=== PATIENT | female | born 1945 | race Caucasian/White ===

== ENCOUNTER 2018-05-31 16:23 | Inpatient (IN) | payer MEDICARE, OTHER, MEDICAID ==
[2018-05-31 22:43] LABS: ADD MAN DIFF? NO
[2018-05-31 22:47] LABS: WHITE BLOOD COUNT 5.7 10^3/ul (4.8-10.8)
[2018-05-31 22:47] LABS: BASOPHILS % 0.2 % (0.0-2.0); EOSINOPHILS % 0.3 % (0.0-7.0); HEMATOCRIT 31.9 % (37.0-47.0); HEMOGLOBIN 9.9 g/dl (12.0-16.0); LYMPHOCYTES # 0.8 10^3/ul (0.8-2.9); LYMPHOCYTES % 13.8 % (15.0-51.0); MEAN CORPUSCULAR HEMOGLOBIN 32.1 pg (29.0-33.0); MEAN CORPUSCULAR VOLUME 103.6 fl (82.0-101.0); MEAN PLATELET VOLUME 9.4 fl (7.4-10.4); MONOCYTE # 0.6 10^3/ul (0.3-0.9); NEUTROPHIL # 4.3 10^3/ul (1.6-7.5); NEUTROPHILS % 74.5 % (39.0-77.0); PLATELET COUNT 126 10^3/UL (140-415); RED BLOOD COUNT 3.08 10^6/ul (4.20-5.40); RED CELL DISTRIBUTION WIDTH 14.1 % (11.5-14.5)
[2018-05-31 23:06] LABS: ALANINE AMINOTRANSFERASE 16 IU/L (13-69); ALBUMIN 3.8 g/dl (3.3-4.9); ALBUMIN/GLOBULIN RATIO 0.97; ALKALINE PHOSPHATASE 125 IU/L (42-121); ANION GAP 14 (5-13); ASPARTATE AMINO TRANSFERASE 16 IU/L (15-46); BILIRUBIN,INDIRECT 0.3 mg/dl (0-1.1); BILIRUBIN,TOTAL 0.3 mg/dl (0.2-1.3); BLOOD UREA NITROGEN 50 mg/dl (7-20); CALCIUM 9.4 mg/dl (8.4-10.2); CARBON DIOXIDE 25 mmol/L (21-31); CHLORIDE 100 mmol/L (97-110); CREATININE 4.75 mg/dl (0.44-1.00); GLUCOSE 186 mg/dl (70-220); POTASSIUM 4.1 mmol/L (3.5-5.1); SODIUM 139 mmol/L (135-144); TOTAL PROTEIN 7.7 g/dl (6.1-8.1)
[2018-05-31 23:15] LABS: INR 1.15; PROTIME 14.9 Sec (11.9-14.9); PT RATIO 1.2
[2018-05-31 23:16] LABS: PARTIAL THROMBOPLASTIN TIME 38.8 Sec (23.0-35.0)
[2018-05-31 23:18] LABS: TROPONIN-I 0.014 ng/ml (0.000-0.120)
[2018-06-01] MEDS ORDERED: ONDANSETRON 4 MG INJ IV
[2018-06-01] MEDS: PIPER-TAZO 3.375 GM IV (PMX) 100 ML IVPB (00:37)
[2018-06-01] MEDS ORDERED: HEPARIN 5,000 UNIT/0.5 ML VIAL ×2 (10:54→23:54)
[2018-06-01] MEDS ORDERED: ACETAMINOPHEN 325 MG TAB PO ×2 (11:00)
[2018-06-01] MEDS ORDERED: DOCUSATE SODIUM 100 MG CAP PO (11:00)
[2018-06-01] MEDS ORDERED: HYDROCODONE/APAP (5/325) TAB PO (11:00)
[2018-06-01] MEDS ORDERED: BISACODYL (EC) 5 MG TAB PO (11:00)
[2018-06-01] MEDS ORDERED: morphine 2 MG INJ IV (11:00)
[2018-06-01] MEDS ORDERED: NACL 0.9% 3 ML SYG IV (11:00)
[2018-06-01] MEDS: FAMOTIDINE 20 MG TAB PO (11:00)
[2018-06-01] MEDS: ATENOLOL 50 MG TAB PO ×2 (11:01→23:55)
[2018-06-01] MEDS: HEPARIN 5,000 UNIT/1 ML VIAL SC ×2 (11:04→23:58)
[2018-06-01] MEDS ORDERED: GLUCOSE GEL 15 GRAM TUBE BUCCAL (11:30)
[2018-06-01] MEDS ORDERED: DEXTROSE 50% 50 ML SYRINGE IV ×2 (11:30)
[2018-06-01] MEDS ORDERED: GLUCAGON 1 MG INJ IM (11:30)
[2018-06-01] MEDS ORDERED: GLUCOSE GEL 15 GRAM TUBE PO (11:30)
[2018-06-01] MEDS: INSULIN ASPART [NOVOLOG] 3 ML PEN SC ×5 (13:21→23:45)
[2018-06-01 16:36] LABS: HEPATITIS B SURFACE ANTIGEN NEGATIVE (NEGATIVE)
[2018-06-01 16:54] LABS: HEPATITIS B SURFACE ANTIBODY POSITIVE (NEGATIVE)
[2018-06-02] MEDS: ACCU-CHEK XX (01:41)
[2018-06-02] MEDS ORDERED: HEPARIN 5,000 UNIT/0.5 ML VIAL ×2 (07:43→19:48)
[2018-06-02 08:56] LABS: ADD MAN DIFF? NO
[2018-06-02] MEDS: INSULIN ASPART [NOVOLOG] 3 ML PEN SC ×7 (09:01→21:00)
[2018-06-02] MEDS: HEPARIN 5,000 UNIT/1 ML VIAL SC ×2 (09:02→20:36)
[2018-06-02 09:03] LABS: WHITE BLOOD COUNT 3.9 10^3/ul (4.8-10.8)
[2018-06-02 09:03] LABS: BASOPHILS % 0.3 % (0.0-2.0); EOSINOPHILS # 0.1 10^3/ul (0.0-0.5); EOSINOPHILS % 2.3 % (0.0-7.0); HEMATOCRIT 30.3 % (37.0-47.0); HEMOGLOBIN 9.2 g/dl (12.0-16.0); LYMPHOCYTES # 0.7 10^3/ul (0.8-2.9); LYMPHOCYTES % 18.1 % (15.0-51.0); MEAN CORPUSCULAR HEMOGLOBIN 31.9 pg (29.0-33.0); MEAN CORPUSCULAR HGB CONC 30.4 g/dl (32.0-37.0); MEAN CORPUSCULAR VOLUME 105.2 fl (82.0-101.0); MEAN PLATELET VOLUME 10.1 fl (7.4-10.4); MONOCYTE # 0.4 10^3/ul (0.3-0.9); MONOCYTES % 10.3 % (0.0-11.0); NEUTROPHIL # 2.7 10^3/ul (1.6-7.5); NEUTROPHILS % 68.7 % (39.0-77.0); PLATELET COUNT 129 10^3/UL (140-415); RED BLOOD COUNT 2.88 10^6/ul (4.20-5.40); RED CELL DISTRIBUTION WIDTH 14.2 % (11.5-14.5)
[2018-06-02] MEDS: FAMOTIDINE 20 MG TAB PO (09:03)
[2018-06-02] MEDS: ATENOLOL 50 MG TAB PO (09:03)
[2018-06-02 09:15] LABS: POSITIVE DIFF @See below
[2018-06-02 09:23] LABS: ALANINE AMINOTRANSFERASE 17 IU/L (13-69); ALBUMIN 3.3 g/dl (3.3-4.9); ALBUMIN/GLOBULIN RATIO 0.97; ALKALINE PHOSPHATASE 115 IU/L (42-121); ANION GAP 12 (5-13); ASPARTATE AMINO TRANSFERASE 20 IU/L (15-46); BILIRUBIN,INDIRECT 0.2 mg/dl (0-1.1); BILIRUBIN,TOTAL 0.2 mg/dl (0.2-1.3); BLOOD UREA NITROGEN 25 mg/dl (7-20); CALCIUM 8.7 mg/dl (8.4-10.2); CARBON DIOXIDE 27 mmol/L (21-31); CHLORIDE 100 mmol/L (97-110); CREATININE 2.99 mg/dl (0.44-1.00); GLUCOSE 154 mg/dl (70-220); POTASSIUM 4.3 mmol/L (3.5-5.1); SODIUM 139 mmol/L (135-144); TOTAL PROTEIN 6.7 g/dl (6.1-8.1)
[2018-06-02 09:41] LABS: HEMOGLOBIN A1C 6.5 % (0-5.9)
[2018-06-02] MEDS ORDERED: VANCOMYCIN IV PER PHARMACY XX (12:00)
[2018-06-02] MEDS: NIFEdipine (XL) 30 MG TAB PO (13:03)
[2018-06-02] MEDS: PIPER-TAZO 2.25 GM (PMX) 50 ML IVPB (13:12)
[2018-06-02] MEDS: VANCOMYCIN 1.25 GM in SOD CHLORIDE 0.9% 250 ML IVPB (14:02)
[2018-06-02] MEDS: CEFEPIME 1GM/50 ML (PMX) 50 ML IVPB (17:06)
[2018-06-02] MEDS: MONTELUKAST 10 MG TAB PO (20:32)
[2018-06-02] MEDS: EPOETIN 4000 UNITS/1 ML INJ (ESRD) SC (20:34)
[2018-06-02] MEDS: INSULIN GLARGINE [LANTus] (100 UNITS/ML) SYG SC (22:01)
[2018-06-02] MEDS: metroNIDAZOLE 500 MG/NS (PMX) 100 ML IVPB (22:02)
[2018-06-03] MEDS: ACCU-CHEK XX (01:25)
[2018-06-03] MEDS: metroNIDAZOLE 500 MG/NS (PMX) 100 ML IVPB ×3 (05:37→21:04)
[2018-06-03 06:12] LABS: ADD MAN DIFF? NO
[2018-06-03 06:21] LABS: BASOPHILS % 0.2 % (0.0-2.0); EOSINOPHILS # 0.1 10^3/ul (0.0-0.5); EOSINOPHILS % 1.4 % (0.0-7.0); HEMATOCRIT 27.4 % (37.0-47.0); HEMOGLOBIN 8.3 g/dl (12.0-16.0); LYMPHOCYTES # 0.8 10^3/ul (0.8-2.9); LYMPHOCYTES % 19.5 % (15.0-51.0); MEAN CORPUSCULAR HEMOGLOBIN 31.6 pg (29.0-33.0); MEAN CORPUSCULAR HGB CONC 30.3 g/dl (32.0-37.0); MEAN CORPUSCULAR VOLUME 104.2 fl (82.0-101.0); MEAN PLATELET VOLUME 10.1 fl (7.4-10.4); MONOCYTE # 0.4 10^3/ul (0.3-0.9); NEUTROPHIL # 2.9 10^3/ul (1.6-7.5); NEUTROPHILS % 69.7 % (39.0-77.0); PLATELET COUNT 120 10^3/UL (140-415); RED BLOOD COUNT 2.63 10^6/ul (4.20-5.40)
[2018-06-03 06:21] LABS: WHITE BLOOD COUNT 4.2 10^3/ul (4.8-10.8)
[2018-06-03] MEDS: DIPHENOXYLATE/ATROPINE TAB PO ×2 (06:35→17:37)
[2018-06-03 06:56] LABS: ANION GAP 10 (5-13); BLOOD UREA NITROGEN 42 mg/dl (7-20); CALCIUM 8.4 mg/dl (8.4-10.2); CARBON DIOXIDE 25 mmol/L (21-31); CHLORIDE 104 mmol/L (97-110); CREATININE 4.49 mg/dl (0.44-1.00); GLUCOSE 193 mg/dl (70-220); POTASSIUM 4.8 mmol/L (3.5-5.1); SODIUM 139 mmol/L (135-144)
[2018-06-03] MEDS: INSULIN ASPART [NOVOLOG] 3 ML PEN SC ×7 (07:36→21:00)
[2018-06-03] MEDS ORDERED: HEPARIN 5,000 UNIT/0.5 ML VIAL ×2 (08:42→19:46)
[2018-06-03] MEDS: FAMOTIDINE 20 MG TAB PO (08:44)
[2018-06-03] MEDS: NIFEdipine (XL) 30 MG TAB PO (08:45)
[2018-06-03] MEDS: ATENOLOL 25 MG TAB PO (08:45)
[2018-06-03] MEDS: HEPARIN 5,000 UNIT/1 ML VIAL SC ×2 (08:56→21:03)
[2018-06-03] MEDS: SIMETH/SOD BICARB/CIT AC PKT (E-Z- GAS II) PO (10:11)
[2018-06-03] MEDS: BARIUM SULFATE 135 ML (E-Z HD) PO (10:11)
[2018-06-03] MEDS: CEFEPIME 1GM/50 ML (PMX) 50 ML IVPB (15:46)
[2018-06-03] MEDS: INSULIN GLARGINE [LANTus] (100 UNITS/ML) SYG SC (20:00)
[2018-06-03] MEDS: MONTELUKAST 10 MG TAB PO (21:04)
[2018-06-04] MEDS: ACCU-CHEK XX (01:06)
[2018-06-04] MEDS: metroNIDAZOLE 500 MG/NS (PMX) 100 ML IVPB ×3 (05:10→22:44)
[2018-06-04 06:41] LABS: VANCOMYCIN,RANDOM 9.5 ug/ml
[2018-06-04] MEDS: INSULIN ASPART [NOVOLOG] 3 ML PEN SC ×7 (07:55→21:00)
[2018-06-04] MEDS: NIFEdipine (XL) 30 MG TAB PO (08:41)
[2018-06-04] MEDS: ATENOLOL 25 MG TAB PO (08:41)
[2018-06-04] MEDS: FAMOTIDINE 20 MG TAB PO (08:55)
[2018-06-04] MEDS: HEPARIN 5,000 UNIT/1 ML VIAL SC ×2 (09:00→21:42)
[2018-06-04] MEDS: DIPHENOXYLATE/ATROPINE TAB PO ×2 (09:05→22:57)
[2018-06-04] MEDS ORDERED: HEPARIN 5,000 UNIT/0.5 ML VIAL ×2 (11:06→21:17)
[2018-06-04] MEDS: CEFEPIME 1GM/50 ML (PMX) 50 ML IVPB (19:48)
[2018-06-04] MEDS: VANCOMYCIN 1 GM 250 ML IVPB (21:25)
[2018-06-04] MEDS: MONTELUKAST 10 MG TAB PO (21:26)
[2018-06-04] MEDS: INSULIN GLARGINE [LANTus] (100 UNITS/ML) SYG SC (21:40)
[2018-06-04] MEDS: ONDANSETRON 4 MG INJ IV (22:57)
[2018-06-05] MEDS: ACCU-CHEK XX (02:00)
[2018-06-05] MEDS: metroNIDAZOLE 500 MG/NS (PMX) 100 ML IVPB ×2 (06:09→13:55)
[2018-06-05] MEDS: INSULIN ASPART [NOVOLOG] 3 ML PEN SC ×6 (07:34→20:24)
[2018-06-05] MEDS ORDERED: HEPARIN 5,000 UNIT/0.5 ML VIAL ×2 (09:00→20:08)
[2018-06-05] MEDS: HEPARIN 5,000 UNIT/1 ML VIAL SC ×2 (09:11→20:29)
[2018-06-05] MEDS: NIFEdipine (XL) 30 MG TAB PO ×2 (09:43→20:22)
[2018-06-05] MEDS: FAMOTIDINE 20 MG TAB PO (09:43)
[2018-06-05] MEDS: ATENOLOL 25 MG TAB PO (09:43)
[2018-06-05] MEDS: DIPHENOXYLATE/ATROPINE TAB PO (09:47)
[2018-06-05 09:48] LABS: ADD MAN DIFF? NO
[2018-06-05 09:54] LABS: WHITE BLOOD COUNT 4.2 10^3/ul (4.8-10.8)
[2018-06-05 09:54] LABS: BASOPHILS % 0.2 % (0.0-2.0); EOSINOPHILS # 0.1 10^3/ul (0.0-0.5); EOSINOPHILS % 2.1 % (0.0-7.0); HEMATOCRIT 30.4 % (37.0-47.0); HEMOGLOBIN 9.3 g/dl (12.0-16.0); LYMPHOCYTES # 0.6 10^3/ul (0.8-2.9); LYMPHOCYTES % 14.2 % (15.0-51.0); MEAN CORPUSCULAR HEMOGLOBIN 31.7 pg (29.0-33.0); MEAN CORPUSCULAR HGB CONC 30.6 g/dl (32.0-37.0); MEAN CORPUSCULAR VOLUME 103.8 fl (82.0-101.0); MEAN PLATELET VOLUME 9.6 fl (7.4-10.4); MONOCYTE # 0.5 10^3/ul (0.3-0.9); MONOCYTES % 11.4 % (0.0-11.0); NEUTROPHILS % 71.9 % (39.0-77.0); PLATELET COUNT 103 10^3/UL (140-415); RED BLOOD COUNT 2.93 10^6/ul (4.20-5.40); RED CELL DISTRIBUTION WIDTH 13.8 % (11.5-14.5)
[2018-06-05 10:22] LABS: ANION GAP 12 (5-13); BLOOD UREA NITROGEN 26 mg/dl (7-20); CALCIUM 8.5 mg/dl (8.4-10.2); CARBON DIOXIDE 26 mmol/L (21-31); CHLORIDE 101 mmol/L (97-110); CREATININE 3.78 mg/dl (0.44-1.00); GLUCOSE 95 mg/dl (70-220); POTASSIUM 4.6 mmol/L (3.5-5.1); SODIUM 139 mmol/L (135-144)
[2018-06-05] MEDS: PANTOPRAZOLE 40 MG INJ IV (12:30)
[2018-06-05] MEDS ORDERED: GENTAMICIN IV PER PHARMACY XX (15:00)
[2018-06-05] MEDS: GLUCOSE GEL 15 GRAM TUBE PO (15:06)
[2018-06-05] MEDS: GENTAMICIN 120 MG/NS (PMX) 100 ML IVPB (16:30)
[2018-06-05] MEDS: LEVOFLOXACIN 250 MG TAB PO (16:31)
[2018-06-05] MEDS ORDERED: morphine LIQ (10 MG/5 ML) CUP PO (17:30)
[2018-06-05] MEDS: MONTELUKAST 10 MG TAB PO (20:23)
[2018-06-05] MEDS: RIFAXIMIN 200 MG TAB PO (20:23)
[2018-06-05] MEDS: L ACIDOPHIL/B LACTIS/B LONGUM CAPSULE PO (20:23)
[2018-06-05] MEDS: INSULIN GLARGINE [LANTus] (100 UNITS/ML) SYG SC (20:29)
[2018-06-05] MEDS: LORAZEPAM 2 MG INJ IV (23:34)
[2018-06-06] MEDS: ACCU-CHEK XX (02:00)
[2018-06-06] MEDS: PANTOPRAZOLE (EC) 40 MG TAB PO (05:27)
[2018-06-06] MEDS: INSULIN ASPART [NOVOLOG] 3 ML PEN SC ×4 (08:24→21:00)
[2018-06-06] MEDS: ATENOLOL 25 MG TAB PO (09:00)
[2018-06-06] MEDS: NIFEdipine (XL) 30 MG TAB PO ×2 (09:00→21:29)
[2018-06-06] MEDS ORDERED: HEPARIN 5,000 UNIT/0.5 ML VIAL ×2 (09:08→20:36)
[2018-06-06] MEDS: RIFAXIMIN 200 MG TAB PO ×3 (09:28→21:27)
[2018-06-06] MEDS: HEPARIN 5,000 UNIT/1 ML VIAL SC ×2 (09:32→21:36)
[2018-06-06] MEDS: L ACIDOPHIL/B LACTIS/B LONGUM CAPSULE PO ×3 (12:43→21:29)
[2018-06-06] MEDS: DIPHENOXYLATE/ATROPINE TAB PO (12:44)
[2018-06-06] MEDS ORDERED: [UNRECOGNIZED DRUG - REMARK] XX (20:00)
[2018-06-06] MEDS: INSULIN GLARGINE [LANTus] (100 UNITS/ML) SYG SC (21:35)
[2018-06-06] MEDS: GENTAMICIN 60 MG in SOD CHLORIDE 0.9% 50 ML IVPB (22:04)
[2018-06-06] MEDS: MONTELUKAST 10 MG TAB PO (22:56)
[2018-06-07] MEDS: ACCU-CHEK XX (02:00)
[2018-06-07 05:21] LABS: ADD MAN DIFF? NO
[2018-06-07 05:26] LABS: BASOPHILS % 0.2 % (0.0-2.0); EOSINOPHILS # 0.1 10^3/ul (0.0-0.5); EOSINOPHILS % 1.7 % (0.0-7.0); HEMATOCRIT 31.9 % (37.0-47.0); HEMOGLOBIN 9.6 g/dl (12.0-16.0); LYMPHOCYTES # 0.8 10^3/ul (0.8-2.9); LYMPHOCYTES % 14.5 % (15.0-51.0); MEAN CORPUSCULAR HEMOGLOBIN 31.3 pg (29.0-33.0); MEAN CORPUSCULAR HGB CONC 30.1 g/dl (32.0-37.0); MEAN CORPUSCULAR VOLUME 103.9 fl (82.0-101.0); MEAN PLATELET VOLUME 10.1 fl (7.4-10.4); MONOCYTE # 0.5 10^3/ul (0.3-0.9); MONOCYTES % 9.4 % (0.0-11.0); NEUTROPHIL # 3.9 10^3/ul (1.6-7.5); NEUTROPHILS % 73.6 % (39.0-77.0); PLATELET COUNT 115 10^3/UL (140-415); RED BLOOD COUNT 3.07 10^6/ul (4.20-5.40); RED CELL DISTRIBUTION WIDTH 13.7 % (11.5-14.5)
[2018-06-07 05:26] LABS: WHITE BLOOD COUNT 5.2 10^3/ul (4.8-10.8)
[2018-06-07 05:46] LABS: ANION GAP 8 (5-13); BLOOD UREA NITROGEN 14 mg/dl (7-20); CALCIUM 8.5 mg/dl (8.4-10.2); CARBON DIOXIDE 29 mmol/L (21-31); CHLORIDE 101 mmol/L (97-110); CREATININE 2.89 mg/dl (0.44-1.00); GLUCOSE 152 mg/dl (70-220); POTASSIUM 4.4 mmol/L (3.5-5.1); SODIUM 138 mmol/L (135-144)
[2018-06-07 06:00] LABS: VANCOMYCIN,RANDOM 13.1 ug/ml
[2018-06-07] MEDS: PANTOPRAZOLE (EC) 40 MG TAB PO (06:33)
[2018-06-07] MEDS: INSULIN ASPART [NOVOLOG] 3 ML PEN SC ×3 (08:41→18:00)
[2018-06-07] MEDS ORDERED: HEPARIN 5,000 UNIT/0.5 ML VIAL (08:49)
[2018-06-07] MEDS: L ACIDOPHIL/B LACTIS/B LONGUM CAPSULE PO (08:51)
[2018-06-07] MEDS: RIFAXIMIN 200 MG TAB PO ×2 (08:51→12:49)
[2018-06-07] MEDS: DIPHENOXYLATE/ATROPINE TAB PO (08:52)
[2018-06-07] MEDS: NIFEdipine (XL) 30 MG TAB PO (08:52)
[2018-06-07] MEDS: ATENOLOL 25 MG TAB PO (08:52)
[2018-06-07] MEDS: HEPARIN 5,000 UNIT/1 ML VIAL SC (08:56)
[2018-06-07] MEDS: BARIUM SULFATE 135 ML (E-Z HD) PO (14:20)
[2018-06-07] MEDS: VANCOMYCIN 1 GM 250 ML IVPB (15:53)
[2018-06-07] MEDS: LEVOFLOXACIN 250 MG TAB PO (16:34)
== END 2018-06-07 18:15 | disposition home or self-care (01) | DRG 638 ==
LOC: 2NE 06-06 01:44 → E/R 16:23 → TEL 23:51
PROC: 5A1D70Z Performance of Urinary Filtration, Intermittent, Less than 6 Hours Per Day (ICD-10-PCS; principal; 2018-06-01)
DX: E11.621 Type 2 diabetes mellitus with foot ulcer (principal); M86.671 Other chronic osteomyelitis, right ankle and foot; L03.115 Cellulitis of right lower limb; D61.818 Other pancytopenia; I13.2 Hypertensive heart and chronic kidney disease with heart failure and with stage 5 chronic kidney disease, or end stage renal disease; K86.1 Other chronic pancreatitis; E11.69 Type 2 diabetes mellitus with other specified complication; E11.628 Type 2 diabetes mellitus with other skin complications; E11.22 Type 2 diabetes mellitus with diabetic chronic kidney disease; N18.6 End stage renal disease; Z99.2 Dependence on renal dialysis; E11.610 Type 2 diabetes mellitus with diabetic neuropathic arthropathy; D63.8 Anemia in other chronic diseases classified elsewhere; E11.42 Type 2 diabetes mellitus with diabetic polyneuropathy; E11.51 Type 2 diabetes mellitus with diabetic peripheral angiopathy without gangrene; I50.9 Heart failure, unspecified; M47.896 Other spondylosis, lumbar region; R19.7 Diarrhea, unspecified
CPT/HCPCS: 73630; 74230; 80048; 80053; 80202; 82962; 83036; 84443; 84484; 85025; 85610; 85730; 86706; 87040; 87070; 87075; 87081; 87340; 90935; 92526; 92610; 92611; 93005; 99285-25; G0378

== ENCOUNTER → 2018-07-03 | Outpatient (CLI) | payer MEDICARE, MEDICAID ==
[2018-07-03 13:19] LABS: ADD MAN DIFF? NO
[2018-07-03 13:21] LABS: BASOPHILS % 0.4 % (0.0-2.0); EOSINOPHILS # 0.1 10^3/ul (0.0-0.5); EOSINOPHILS % 1.6 % (0.0-7.0); HEMATOCRIT 32.5 % (37.0-47.0); HEMOGLOBIN 9.8 g/dl (12.0-16.0); LYMPHOCYTES # 0.9 10^3/ul (0.8-2.9); LYMPHOCYTES % 17.9 % (15.0-51.0); MEAN CORPUSCULAR HEMOGLOBIN 30.9 pg (29.0-33.0); MEAN CORPUSCULAR HGB CONC 30.2 g/dl (32.0-37.0); MEAN CORPUSCULAR VOLUME 102.5 fl (82.0-101.0); MEAN PLATELET VOLUME 9.5 fl (7.4-10.4); MONOCYTE # 0.6 10^3/ul (0.3-0.9); MONOCYTES % 12.4 % (0.0-11.0); NEUTROPHIL # 3.4 10^3/ul (1.6-7.5); NEUTROPHILS % 67.1 % (39.0-77.0); PLATELET COUNT 115 10^3/UL (140-415); RED BLOOD COUNT 3.17 10^6/ul (4.20-5.40); RED CELL DISTRIBUTION WIDTH 14.6 % (11.5-14.5)
[2018-07-03 13:37] LABS: INR 1.13; PROTIME 14.7 Sec (11.9-14.9); PT RATIO 1.1
[2018-07-03 13:38] LABS: PARTIAL THROMBOPLASTIN TIME 42.8 Sec (23.0-35.0)
[2018-07-03 13:49] LABS: ANION GAP 12 (5-13); BLOOD UREA NITROGEN 48 mg/dl (7-20); CALCIUM 9.6 mg/dl (8.4-10.2); CARBON DIOXIDE 26 mmol/L (21-31); CHLORIDE 100 mmol/L (97-110); CREATININE 4.03 mg/dl (0.44-1.00); GLUCOSE 145 mg/dl (70-220); POTASSIUM 4.3 mmol/L (3.5-5.1); SODIUM 138 mmol/L (135-144)
== END | disposition home or self-care (01) ==
LOC: RAD 12:26
DX: Z01.818 Encounter for other preprocedural examination (principal)
CPT/HCPCS: 71045; 80048; 85025; 85610; 85730

== ENCOUNTER 2018-07-06 11:29 | Inpatient (IN) | payer MEDICARE, OTHER, MEDICAID ==
[2018-07-06 13:36] LABS: POTASSIUM 4.5 mmol/L (3.5-5.1)
[2018-07-06] MEDS ORDERED: LIDOCAINE 2% (SDV) 5 ML INJ (14:03)
[2018-07-06] MEDS ORDERED: CEFAZOLIN 1 GM INJ (14:03)
[2018-07-06] MEDS ORDERED: PROPOFOL 20 ML (14:03)
[2018-07-06] MEDS ORDERED: ONDANSETRON 4 MG INJ (14:04)
[2018-07-06] MEDS ORDERED: METOCLOPRAMIDE 10 MG INJ (14:04)
[2018-07-06] MEDS ORDERED: MIDAZOLAM 1 MG/ML 2 ML INJ (14:04)
[2018-07-06] MEDS ORDERED: ROPIVACAINE 0.5 % 30 ML VIAL (14:04)
[2018-07-06] MEDS ORDERED: BUPIVACAINE 0.5% (SDV) 30 ML INJ (14:16)
[2018-07-06] MEDS: POLYMYXIN/BACITRACIN 1L IRRIG (15:14)
[2018-07-06] MEDS ORDERED: ATROPINE 1 MG/10 ML SYRINGE (15:18)
[2018-07-06] MEDS ORDERED: EPHEDrine SULFATE 50 MG/5 ML SYG (15:18)
[2018-07-06] MEDS ORDERED: SUCCINYLCHOLINE CHLORIDE 100 MG/5 ML SYG IV (16:34)
[2018-07-06] MEDS ORDERED: ROCURONIUM 50 MG INJ (16:34)
[2018-07-06] MEDS ORDERED: FENTAnyl 50 MCG/ML VIAL IV ×2 (17:00)
[2018-07-06] MEDS ORDERED: MEPERIDINE 25 MG INJ IV (17:00)
[2018-07-06] MEDS ORDERED: HYDROmorphONE 1 MG/5 ML IV SYRINGE IV ×2 (17:00)
[2018-07-06] MEDS ORDERED: hydrALAzine 20 MG INJ IV (17:00)
[2018-07-06] MEDS ORDERED: OXYCODONE/ACETAMINOPHEN (5/325) TAB PO ×2 (17:00)
[2018-07-06] MEDS ORDERED: METOCLOPRAMIDE 10 MG INJ IV (17:00)
[2018-07-06] MEDS ORDERED: ONDANSETRON 4 MG INJ IV (17:00)
[2018-07-06] MEDS ORDERED: DIPHENHYDRAMINE 50 MG INJ IV (17:00)
[2018-07-06] MEDS ORDERED: EPHEDrine SULFATE 50 MG/5 ML SYG IV (17:00)
[2018-07-06] MEDS ORDERED: MIDAZOLAM 1 MG/ML 2 ML INJ IV (17:00)
[2018-07-06] MEDS ORDERED: LABETALOL HCL 20MG INJ IV (17:00)
[2018-07-06] MEDS ORDERED: GLUCOSE GEL 15 GRAM TUBE PO ×2 (21:30)
[2018-07-06] MEDS ORDERED: GLUCAGON 1 MG INJ IM (21:30)
[2018-07-06] MEDS ORDERED: DEXTROSE 50% 50 ML SYRINGE IV ×2 (21:30)
[2018-07-06] MEDS: INSULIN ASPART [NOVOLOG] 3 ML PEN SC (21:58)
[2018-07-06] MEDS: LORAZEPAM 0.5 MG TAB PO (22:12)
[2018-07-07] MEDS ORDERED: DIPHENOXYLATE/ATROPINE TAB PO
[2018-07-07] MEDS ORDERED: LEVOFLOXACIN 250 MG TAB PO
[2018-07-07] MEDS: LORAZEPAM 2 MG INJ IV (00:16)
[2018-07-07] MEDS: ACCU-CHEK XX (01:55)
[2018-07-07] MEDS: LEVOFLOXACIN 250 MG TAB PO (05:30)
[2018-07-07] MEDS: MULTIVIT/CA CARB/B CMPLX/FA TAB PO (08:41)
[2018-07-07] MEDS: NIFEdipine (XL) 30 MG TAB PO ×2 (08:41→21:16)
[2018-07-07] MEDS: ASPIRIN (EC) 81 MG TAB PO (08:41)
[2018-07-07] MEDS: INSULIN ASPART [NOVOLOG] 3 ML PEN SC ×4 (08:43→21:00)
[2018-07-07] MEDS: DIPHENOXYLATE/ATROPINE TAB PO (08:48)
[2018-07-07] MEDS ORDERED: ATENOLOL 50 MG TAB PO (09:00)
[2018-07-07] MEDS ORDERED: ISOSORBIDE MONONITRATE 20 MG TAB PO (09:00)
[2018-07-07] MEDS ORDERED: VANCOMYCIN IV PER PHARMACY XX (15:00)
[2018-07-07] MEDS: VANCOMYCIN 1.25 GM in SOD CHLORIDE 0.9% 250 ML IVPB (15:56)
[2018-07-07] MEDS: LORAZEPAM 0.5 MG TAB PO (21:16)
[2018-07-07] MEDS: INSULIN GLARGINE [LANTus] (100 UNITS/ML) SYG SC (21:16)
[2018-07-08] MEDS: ACCU-CHEK XX (02:00)
[2018-07-08] MEDS: INSULIN ASPART [NOVOLOG] 3 ML PEN SC ×4 (07:50→21:00)
[2018-07-08] MEDS: ASPIRIN (EC) 81 MG TAB PO (08:38)
[2018-07-08] MEDS: NIFEdipine (XL) 30 MG TAB PO ×2 (08:38→20:43)
[2018-07-08] MEDS: DIPHENOXYLATE/ATROPINE TAB PO (08:41)
[2018-07-08] MEDS: MULTIVIT/CA CARB/B CMPLX/FA TAB PO ×2 (09:00→11:42)
[2018-07-08] MEDS: ACETAMINOPHEN 325 MG TAB PO ×2 (11:42→17:30)
[2018-07-08] MEDS: LORAZEPAM 0.5 MG TAB PO (20:41)
[2018-07-08] MEDS: INSULIN GLARGINE [LANTus] (100 UNITS/ML) SYG SC (20:45)
[2018-07-09] MEDS: LORAZEPAM 2 MG INJ IV (01:45)
[2018-07-09] MEDS: ACCU-CHEK XX (02:00)
[2018-07-09] MEDS: LEVOFLOXACIN 250 MG TAB PO (05:17)
[2018-07-09] MEDS: ACETAMINOPHEN 325 MG TAB PO ×2 (05:17→22:55)
[2018-07-09 05:51] LABS: VANCOMYCIN,RANDOM 11.8 ug/ml
[2018-07-09 06:08] LABS: BLOOD UREA NITROGEN 89 mg/dl (7-20)
[2018-07-09 06:20] LABS: CREATININE 7.36 mg/dl (0.44-1.00)
[2018-07-09] MEDS: INSULIN ASPART [NOVOLOG] 3 ML PEN SC ×4 (07:50→20:51)
[2018-07-09] MEDS: DIPHENOXYLATE/ATROPINE TAB PO (08:38)
[2018-07-09] MEDS: ASPIRIN (EC) 81 MG TAB PO (08:38)
[2018-07-09] MEDS: MULTIVIT/CA CARB/B CMPLX/FA TAB PO (08:38)
[2018-07-09] MEDS: NIFEdipine (XL) 30 MG TAB PO ×2 (08:39→20:46)
[2018-07-09] MEDS: VANCOMYCIN 1 GM 250 ML IVPB (20:40)
[2018-07-09] MEDS: INSULIN GLARGINE [LANTus] (100 UNITS/ML) SYG SC (20:52)
[2018-07-09] MEDS: LORAZEPAM 0.5 MG TAB PO (21:13)
[2018-07-09 21:29] LABS: ADD MAN DIFF? NO
[2018-07-09 21:32] LABS: BASOPHILS % 0.4 % (0.0-2.0); EOSINOPHILS # 0.2 10^3/ul (0.0-0.5); EOSINOPHILS % 3.2 % (0.0-7.0); HEMATOCRIT 29.2 % (37.0-47.0); LYMPHOCYTES # 0.7 10^3/ul (0.8-2.9); LYMPHOCYTES % 14.8 % (15.0-51.0); MEAN CORPUSCULAR HEMOGLOBIN 30.5 pg (29.0-33.0); MEAN CORPUSCULAR HGB CONC 30.8 g/dl (32.0-37.0); MEAN PLATELET VOLUME 9.5 fl (7.4-10.4); MONOCYTE # 0.5 10^3/ul (0.3-0.9); MONOCYTES % 9.9 % (0.0-11.0); NEUTROPHIL # 3.4 10^3/ul (1.6-7.5); NEUTROPHILS % 71.1 % (39.0-77.0); PLATELET COUNT 143 10^3/UL (140-415); RED BLOOD COUNT 2.95 10^6/ul (4.20-5.40); RED CELL DISTRIBUTION WIDTH 14.9 % (11.5-14.5)
[2018-07-09 21:32] LABS: WHITE BLOOD COUNT 4.7 10^3/ul (4.8-10.8)
[2018-07-09 22:02] LABS: ANION GAP 16 (5-13); BLOOD UREA NITROGEN 97 mg/dl (7-20); CALCIUM 8.6 mg/dl (8.4-10.2); CARBON DIOXIDE 21 mmol/L (21-31); CHLORIDE 98 mmol/L (97-110); GLUCOSE 203 mg/dl (70-220); SODIUM 135 mmol/L (135-144)
[2018-07-09 22:05] LABS: POTASSIUM 6.1 mmol/L (3.5-5.1)
[2018-07-09 22:09] LABS: CREATININE 8.04 mg/dl (0.44-1.00)
[2018-07-09 22:43] LABS: HEPATITIS B SURFACE ANTIGEN NEGATIVE (NEGATIVE)
[2018-07-09] MEDS: BALSAM PERU/CASTOR OIL 60 GM TUBE TOP (23:48)
[2018-07-10] MEDS: ACCU-CHEK XX (02:56)
[2018-07-10] MEDS: ACETAMINOPHEN 325 MG TAB PO ×2 (05:11→12:38)
[2018-07-10] MEDS: DIPHENOXYLATE/ATROPINE TAB PO ×2 (05:12→12:38)
[2018-07-10 05:17] LABS: ADD MAN DIFF? NO
[2018-07-10 05:33] LABS: WHITE BLOOD COUNT 5.5 10^3/ul (4.8-10.8)
[2018-07-10 05:33] LABS: BASOPHILS % 0.4 % (0.0-2.0); EOSINOPHILS # 0.1 10^3/ul (0.0-0.5); EOSINOPHILS % 1.8 % (0.0-7.0); HEMATOCRIT 27.2 % (37.0-47.0); HEMOGLOBIN 8.6 g/dl (12.0-16.0); LYMPHOCYTES # 0.6 10^3/ul (0.8-2.9); LYMPHOCYTES % 11.2 % (15.0-51.0); MEAN CORPUSCULAR HEMOGLOBIN 30.8 pg (29.0-33.0); MEAN CORPUSCULAR HGB CONC 31.6 g/dl (32.0-37.0); MEAN CORPUSCULAR VOLUME 97.5 fl (82.0-101.0); MEAN PLATELET VOLUME 9.5 fl (7.4-10.4); MONOCYTE # 0.5 10^3/ul (0.3-0.9); MONOCYTES % 9.1 % (0.0-11.0); NEUTROPHIL # 4.2 10^3/ul (1.6-7.5); NEUTROPHILS % 76.8 % (39.0-77.0); PLATELET COUNT 141 10^3/UL (140-415); RED BLOOD COUNT 2.79 10^6/ul (4.20-5.40)
[2018-07-10 06:18] LABS: BLOOD UREA NITROGEN 36 mg/dl (7-20); CALCIUM 8.6 mg/dl (8.4-10.2); CARBON DIOXIDE 26 mmol/L (21-31); CREATININE 3.76 mg/dl (0.44-1.00); GLUCOSE 127 mg/dl (70-220)
[2018-07-10] MEDS: LORAZEPAM 2 MG INJ IV (06:45)
[2018-07-10 07:02] LABS: ANION GAP 15 (5-13); CHLORIDE 98 mmol/L (97-110); POTASSIUM 3.6 mmol/L (3.5-5.1); SODIUM 139 mmol/L (135-144)
[2018-07-10] MEDS: INSULIN ASPART [NOVOLOG] 3 ML PEN SC ×4 (07:50→21:00)
[2018-07-10] MEDS: MULTIVIT/CA CARB/B CMPLX/FA TAB PO (08:44)
[2018-07-10] MEDS: ASPIRIN (EC) 81 MG TAB PO (08:44)
[2018-07-10] MEDS: NIFEdipine (XL) 30 MG TAB PO ×2 (08:45→22:40)
[2018-07-10] MEDS: BALSAM PERU/CASTOR OIL 60 GM TUBE TOP ×2 (08:45→22:41)
[2018-07-10] MEDS: LORAZEPAM 0.5 MG TAB PO (17:51)
[2018-07-10] MEDS: INSULIN GLARGINE [LANTus] (100 UNITS/ML) SYG SC (22:41)
[2018-07-11] MEDS: ACCU-CHEK XX (01:49)
[2018-07-11] MEDS: LEVOFLOXACIN 250 MG TAB PO (06:47)
[2018-07-11] MEDS: INSULIN ASPART [NOVOLOG] 3 ML PEN SC ×4 (08:40→20:27)
[2018-07-11] MEDS: ASPIRIN (EC) 81 MG TAB PO (08:43)
[2018-07-11] MEDS: NIFEdipine (XL) 30 MG TAB PO ×2 (08:44→20:24)
[2018-07-11] MEDS: MULTIVIT/CA CARB/B CMPLX/FA TAB PO (08:44)
[2018-07-11] MEDS ORDERED: LOPERAMIDE 2 MG CAP (08:50)
[2018-07-11] MEDS: DIPHENOXYLATE/ATROPINE TAB PO ×2 (08:55→18:19)
[2018-07-11] MEDS: BALSAM PERU/CASTOR OIL 60 GM TUBE TOP ×2 (08:56→20:25)
[2018-07-11] MEDS: ESCITALOPRAM 10 MG TAB PO (16:10)
[2018-07-11] MEDS: LORAZEPAM 0.5 MG TAB PO (17:48)
[2018-07-11] MEDS ORDERED: DIPHENOXYLATE/ATROPINE TAB (18:16)
[2018-07-11] MEDS: ONDANSETRON 4 MG INJ IV ×2 (19:11→23:33)
[2018-07-11] MEDS: LORAZEPAM 2 MG INJ IV (19:31)
[2018-07-11] MEDS: INSULIN GLARGINE [LANTus] (100 UNITS/ML) SYG SC (20:27)
[2018-07-12 00:52] LABS: HEMATOCRIT 30.1 % (37.0-47.0); HEMOGLOBIN 9.1 g/dl (12.0-16.0)
[2018-07-12] MEDS: ACCU-CHEK XX (02:00)
[2018-07-12 05:19] LABS: ADD MAN DIFF? NO
[2018-07-12 05:28] LABS: WHITE BLOOD COUNT 5.3 10^3/ul (4.8-10.8)
[2018-07-12 05:28] LABS: BASOPHILS % 0.4 % (0.0-2.0); EOSINOPHILS % 0.8 % (0.0-7.0); HEMATOCRIT 26.3 % (37.0-47.0); HEMOGLOBIN 7.9 g/dl (12.0-16.0); LYMPHOCYTES # 0.9 10^3/ul (0.8-2.9); LYMPHOCYTES % 17.3 % (15.0-51.0); MEAN CORPUSCULAR HEMOGLOBIN 30.4 pg (29.0-33.0); MEAN CORPUSCULAR VOLUME 101.2 fl (82.0-101.0); MEAN PLATELET VOLUME 9.8 fl (7.4-10.4); MONOCYTE # 0.6 10^3/ul (0.3-0.9); MONOCYTES % 11.7 % (0.0-11.0); NEUTROPHIL # 3.7 10^3/ul (1.6-7.5); NEUTROPHILS % 69.2 % (39.0-77.0); PLATELET COUNT 152 10^3/UL (140-415); RED CELL DISTRIBUTION WIDTH 14.6 % (11.5-14.5)
[2018-07-12 05:44] LABS: VANCOMYCIN,RANDOM 14.9 ug/ml
[2018-07-12 05:46] LABS: ANION GAP 9 (5-13); BLOOD UREA NITROGEN 27 mg/dl (7-20); CALCIUM 8.4 mg/dl (8.4-10.2); CARBON DIOXIDE 31 mmol/L (21-31); CHLORIDE 98 mmol/L (97-110); GLUCOSE 143 mg/dl (70-220); POTASSIUM 4.2 mmol/L (3.5-5.1); SODIUM 138 mmol/L (135-144)
[2018-07-12] MEDS ORDERED: ESCITALOPRAM 10 MG TAB PO (09:00)
[2018-07-12] MEDS: MULTIVIT/CA CARB/B CMPLX/FA TAB PO (09:00)
[2018-07-12] MEDS: INSULIN ASPART [NOVOLOG] 3 ML PEN SC ×4 (09:02→21:00)
[2018-07-12] MEDS: ESCITALOPRAM 10 MG TAB PO (09:03)
[2018-07-12] MEDS: NIFEdipine (XL) 30 MG TAB PO ×2 (09:03→21:08)
[2018-07-12] MEDS: DIPHENOXYLATE/ATROPINE TAB PO (09:06)
[2018-07-12] MEDS: PANTOPRAZOLE 40 MG INJ IV ×2 (10:07→17:36)
[2018-07-12] MEDS: DEXTROSE 5%-0.45% NACL 1,000 ML IV (10:07)
[2018-07-12 10:42] LABS: IMMEDIATE SPIN CROSSMATCH 1 1
[2018-07-12] MEDS: BALSAM PERU/CASTOR OIL 60 GM TUBE TOP ×2 (15:40→21:09)
[2018-07-12] MEDS: COLLAGENASE 5 GM (UD JAR) TOP (15:41)
[2018-07-12] MEDS: VANCOMYCIN 750 MG in SOD CHLORIDE 0.9% 150 ML IVPB (21:09)
[2018-07-12] MEDS: INSULIN GLARGINE [LANTus] (100 UNITS/ML) SYG SC (21:10)
[2018-07-13] MEDS: ACCU-CHEK XX (02:00)
[2018-07-13] MEDS: LEVOFLOXACIN 250 MG TAB PO (06:00)
[2018-07-13] MEDS: PANTOPRAZOLE 40 MG INJ IV ×2 (06:00→16:52)
[2018-07-13] MEDS: INSULIN ASPART [NOVOLOG] 3 ML PEN SC ×4 (07:50→21:00)
[2018-07-13] MEDS ORDERED: ALBUMIN HUMAN 25% 100 ML IV (08:30)
[2018-07-13] MEDS: ESCITALOPRAM 10 MG TAB PO (09:00)
[2018-07-13] MEDS: MULTIVIT/CA CARB/B CMPLX/FA TAB PO (09:00)
[2018-07-13] MEDS: NIFEdipine (XL) 30 MG TAB PO ×2 (09:00→21:55)
[2018-07-13] MEDS: DEXTROSE 5%-0.45% NACL 1,000 ML IV (12:00)
[2018-07-13] MEDS: PROPOFOL 20 ML (12:39)
[2018-07-13] MEDS: LIDOCAINE 100 MG SYRINGE (12:39)
[2018-07-13] MEDS: FENTAnyl 50 MCG/ML VIAL (12:40)
[2018-07-13] MEDS: COLLAGENASE 5 GM (UD JAR) TOP (14:00)
[2018-07-13] MEDS: BALSAM PERU/CASTOR OIL 60 GM TUBE TOP ×2 (14:00→22:28)
[2018-07-13] MEDS ORDERED: HEPARIN 1000 UNITS/ML 10 ML INJ (15:25)
[2018-07-13] MEDS ORDERED: LIDOCAINE 1% (MDV) 20 ML INJ (15:25)
[2018-07-13] MEDS ORDERED: IODIXANOL LOCM 100 ML BTL (15:25)
[2018-07-13] MEDS ORDERED: SOD CHLORIDE 0.9% 500 ML (15:25)
[2018-07-13] MEDS ORDERED: LORAZEPAM 4 MG/ML VIAL IV (15:30)
[2018-07-13] MEDS: EPOETIN 4000 UNITS/1 ML INJ (ESRD) SC (16:37)
[2018-07-13] MEDS: INSULIN GLARGINE [LANTus] (100 UNITS/ML) SYG SC (21:56)
[2018-07-14] MEDS: DEXTROSE 5%-0.45% NACL 1,000 ML IV (00:30)
[2018-07-14] MEDS: ACCU-CHEK XX (02:00)
[2018-07-14] MEDS: LORAZEPAM 0.5 MG TAB PO (02:35)
[2018-07-14] MEDS: PANTOPRAZOLE 40 MG INJ IV ×2 (06:00→17:30)
[2018-07-14] MEDS: INSULIN ASPART [NOVOLOG] 3 ML PEN SC ×4 (07:50→21:00)
[2018-07-14] MEDS: NIFEdipine (XL) 30 MG TAB PO ×2 (08:31→21:00)
[2018-07-14] MEDS: DIPHENOXYLATE/ATROPINE TAB PO (08:31)
[2018-07-14] MEDS: ESCITALOPRAM 10 MG TAB PO (08:31)
[2018-07-14] MEDS: COLLAGENASE 5 GM (UD JAR) TOP (08:32)
[2018-07-14] MEDS: BALSAM PERU/CASTOR OIL 60 GM TUBE TOP ×2 (09:00→21:31)
[2018-07-14] MEDS: MULTIVIT/CA CARB/B CMPLX/FA TAB PO (13:04)
[2018-07-14] MEDS: INSULIN GLARGINE [LANTus] (100 UNITS/ML) SYG SC (21:28)
[2018-07-15] MEDS: ACCU-CHEK XX (02:00)
[2018-07-15] MEDS: LORAZEPAM 0.5 MG TAB PO ×2 (03:32→19:27)
[2018-07-15] MEDS: PANTOPRAZOLE 40 MG INJ IV ×2 (06:00→17:45)
[2018-07-15] MEDS: LEVOFLOXACIN 250 MG TAB PO (06:00)
[2018-07-15] MEDS: INSULIN ASPART [NOVOLOG] 3 ML PEN SC ×4 (07:50→19:49)
[2018-07-15] MEDS: COLLAGENASE 5 GM (UD JAR) TOP (08:19)
[2018-07-15] MEDS: MULTIVIT/CA CARB/B CMPLX/FA TAB PO (08:19)
[2018-07-15] MEDS: ESCITALOPRAM 10 MG TAB PO (08:19)
[2018-07-15] MEDS: NIFEdipine (XL) 30 MG TAB PO ×2 (08:19→19:44)
[2018-07-15] MEDS: BALSAM PERU/CASTOR OIL 60 GM TUBE TOP ×2 (08:20→22:44)
[2018-07-15] MEDS: DIPHENOXYLATE/ATROPINE TAB PO (08:31)
[2018-07-15] MEDS: INSULIN GLARGINE [LANTus] (100 UNITS/ML) SYG SC (19:50)
[2018-07-16] MEDS: ACCU-CHEK XX (02:00)
[2018-07-16] MEDS: PANTOPRAZOLE 40 MG INJ IV (06:00)
[2018-07-16] MEDS: GLUCOSE GEL 15 GRAM TUBE BUCCAL ×2 (07:23→08:09)
[2018-07-16] MEDS: INSULIN ASPART [NOVOLOG] 3 ML PEN SC ×2 (07:50→13:03)
[2018-07-16] MEDS: MULTIVIT/CA CARB/B CMPLX/FA TAB PO (08:11)
[2018-07-16] MEDS: ESCITALOPRAM 10 MG TAB PO (08:11)
[2018-07-16] MEDS: NIFEdipine (XL) 30 MG TAB PO ×2 (08:13→08:20)
[2018-07-16] MEDS: BALSAM PERU/CASTOR OIL 60 GM TUBE TOP (08:13)
[2018-07-16] MEDS: COLLAGENASE 5 GM (UD JAR) TOP (14:15)
[2018-07-16] MEDS: ACETAMINOPHEN 325 MG TAB PO (15:28)
[2018-07-16] MEDS: DIPHENOXYLATE/ATROPINE TAB PO (15:28)
[2018-07-16] MEDS: EPOETIN 10000 UNITS/1 ML INJ (ESRD) SC (17:00)
== END 2018-07-16 17:30 | DRG 981 ==
LOC: REC 11:29 → MS1 20:04 → REC 20:04 → MS1 20:04
PROVIDERS: Podiatrist Foot & Ankle Surgery
PROC: 0QSG35Z Reposition Right Tibia with External Fixation Device, Percutaneous Approach (ICD-10-PCS; principal; 2018-07-06 14:00)
PROC: 0QSN35Z Reposition Right Metatarsal with External Fixation Device, Percutaneous Approach (ICD-10-PCS; 2018-07-06 14:00)
PROC: 05763ZZ Dilation of Left Subclavian Vein, Percutaneous Approach (ICD-10-PCS; 2018-07-06 14:16)
PROC: 5A1D70Z Performance of Urinary Filtration, Intermittent, Less than 6 Hours Per Day (ICD-10-PCS; 2018-07-06 14:16)
PROC: B51WYZZ Fluoroscopy of Dialysis Shunt/Fistula using Other Contrast (ICD-10-PCS; 2018-07-06 14:16)
PROC: 0DB68ZX Excision of Stomach, Via Natural or Artificial Opening Endoscopic, Diagnostic (ICD-10-PCS; 2018-07-06 14:16)
DX: E11.610 Type 2 diabetes mellitus with diabetic neuropathic arthropathy (principal); N18.6 End stage renal disease; I12.0 Hypertensive chronic kidney disease with stage 5 chronic kidney disease or end stage renal disease; D62 Acute posthemorrhagic anemia; I82.B12 Acute embolism and thrombosis of left subclavian vein; E11.621 Type 2 diabetes mellitus with foot ulcer; L97.519 Non-pressure chronic ulcer of other part of right foot with unspecified severity; E11.22 Type 2 diabetes mellitus with diabetic chronic kidney disease; Z99.2 Dependence on renal dialysis; Z79.4 Long term (current) use of insulin; K52.9 Noninfective gastroenteritis and colitis, unspecified; E11.42 Type 2 diabetes mellitus with diabetic polyneuropathy; E11.649 Type 2 diabetes mellitus with hypoglycemia without coma; F32.9 Major depressive disorder, single episode, unspecified; K20.9 Esophagitis, unspecified; K29.60 Other gastritis without bleeding
CPT/HCPCS: 36430; 36901; 36907; 73610-RT; 73630; 80048; 80202; 82565; 82962; 84132; 84520; 85014; 85018; 85025; 86850; 86900; 86901; 86920; 87340; 88305; 88312; 88313; 90935; 93971; 99217

== ENCOUNTER → 2018-09-25 | Outpatient (CLI) | payer MEDICARE, OTHER | END | disposition home or self-care (01) | LOC: RAD 16:30 | DX: M14.671 Charcot's joint, right ankle and foot (principal) | CPT/HCPCS: 73590; 73610-RT; 73630 ==